=== PATIENT | male | born 1975 | race Caucasian/White ===

== ENCOUNTER 2016-08-19 11:00 | Emergency (ER) | payer OTHER ==
[~2016-08-19] VITALS: Ht 188 cm; Wt 104.3 kg
[2016-08-19 11:08] VITALS: BP 150/73
--- NOTE | 2016-08-19 11:12 | NUR ---
Patient ambulated to bed 05.
--- NOTE | 2016-08-19 11:28 | NUR ---
PATIENT PRESENTS TO ED DUE ABDOMINAL PAIN. PT STATES HE WAS RECENTLY RELEASED FROM RETIREMENT AND WAS TOLD HE HAS A HERNIA. DENIES N/V/D; SKIN IS PINK/WARM/DRY; AAOX4 WITH EVEN AND STEADY GAIT; LUNGS CLEAR BL; HR EVEN AND REGULAR; PT DENIES ANY FEVER, CP, SOB, OR COUGH AT THIS TIME; PATIENT STATES PAIN OF 2/10 AT THIS TIME; PATIENT POSITIONED FOR COMFORT; HOB ELEVATED; BEDRAILS UP X2; BED DOWN. ER MD MADE AWARE OF PT STATUS.
--- NOTE | 2016-08-19 11:33 | NUR ---
DR. CARRANZA EVALUATING PATIENT AT BEDSIDE.
[2016-08-19 11:50] VITALS: BP 150/73
--- NOTE | 2016-08-19 11:50 | NUR ---
Patient discharged with v/s stable. Written and verbal after care instructions given and explained. Patient verbalized understanding. Ambulatory with steady gait. All questions addressed prior to discharge. Advised to follow up with [email or web address] TO TAKE SOME FIBER AND PT AGREED WITH IT.
== END 2016-08-19 11:50 | disposition home or self-care (01) ==
LOC: MED 11:09
DX: K43.9 Ventral hernia without obstruction or gangrene (principal); R03.0 Elevated blood-pressure reading, without diagnosis of hypertension